=== PATIENT | male | born 1985 | race Caucasian/White ===

== ENCOUNTER 2016-12-11 20:05 | Emergency (ER) | payer SELFPAY ==
[~2016-12-11] VITALS: Ht 188 cm; Wt 99.8 kg
--- NOTE | 2016-12-11 20:30 | NUR ---
Per Dr Pina, patient is not a Code Sepsis
[2016-12-11] MEDS ORDERED: KETOROLAC TROMETHAMINE 30 MG INJ IVP ONE (20:45)
[2016-12-11] MEDS ORDERED: CLINDAMYCIN PHOSPHATE IV 600 MG in IV DEXTROSE 5% 100 ML IV ONE (20:45)
[2016-12-11] MEDS ORDERED: DEXAMETHASONE SOD PHOSPHATE 4 MG INJ IV ONE (20:45)
[2016-12-11] MEDS ORDERED: IV NORMAL SALINE 1000 ML BAG IV ONE (20:45)
[2016-12-11] MEDS ORDERED: KETOROLAC TROMETHAMINE 30 MG INJ ONE (21:04)
[2016-12-11] MEDS ORDERED: DEXAMETHASONE SOD PHOSPHATE 10 MG INJ ONE (21:04)
[2016-12-11 21:06] LABS: BASOPHILS # (AUTO) 0.1 K/uL (0.0-8.0); BASOPHILS % (AUTO) 0.7 % (0.0-2.0); EOSINOPHILS # (AUTO) 0.1 K/uL (0.0-0.7); HEMATOCRIT 47.8 % (40-50); HEMOGLOBIN 16.3 G/DL (14.0-18.0); LYMPHOCYTES # (AUTO) 1.7 K/UL (0.8-4.8); LYMPHOCYTES % (AUTO) 18.6 % (20.5-51.5); MEAN CORPUSCULAR HEMOGLOBIN 28.9 UUG (27.0-31.0); MEAN CORPUSCULAR HGB CONC 34 g/dL (32.0-37.0); MEAN CORPUSCULAR VOLUME 84.7 FL (82.0-92.0); MONOCYTES # (AUTO) 1.2 K/UL (0.1-1.30); MONOCYTES % (AUTO) 13.2 % (0.0-11.0); NEUTROPHILS # (AUTO) 6.2 K/UL (1.8-8.9); NEUTROPHILS % (AUTO) 66.5 % (38.5-71.5); PLATELET COUNT (AUTO) 239 K/UL (150-450); RED BLOOD CELL COUNT(AUTO) 5.64 MIL/UL (4.7-6.1); WHITE BLOOD COUNT (AUTO) 9.3 K/UL (4.0-11.2)
[2016-12-11 21:14] LABS: CREATININE 1.2 mg/dL (0.6-1.3); POTASSIUM 3.7 mmol/L (3.5-5.1)
[2016-12-11 21:21] LABS: BILIRUBIN,DIRECT 0.1 mg/dL (0.0-0.2); BILIRUBIN,TOTAL 0.5 mg/dL (0.2-1.0); TOTAL PROTEIN, SERUM 8.3 g/dL (6.4-8.2)
[2016-12-11] MEDS ORDERED: CLINDAMYCIN PHOSPHATE 600 MG/4 ML VIAL ONE (21:21)
--- NOTE | 2016-12-11 22:13 | NUR ---
Patient discharged to home in stable conditon. Written and verbal after care instructions given. Patient verbalizes understanding of instructions. Ambulated from ER with stable gait. All beloningings with patient.
[2016-12-11 22:16] VITALS: BP 131/74
== END 2016-12-11 22:17 | disposition home or self-care (01) ==
LOC: EDBD 20:07 → ER 20:07
DX: I88.9 Nonspecific lymphadenitis, unspecified (principal)
CPT/HCPCS: 36415; 70030-TC; 83605; 85025; 86403; 87040; 87070; 87400; A4663; J1100; J1885; J3490; J7030

== ENCOUNTER 2016-12-22 16:40 | Emergency (ER) | payer SELFPAY ==
[~2016-12-22] VITALS: Ht 188 cm; Wt 95.3 kg
[2016-12-22 17:33] LABS: BASOPHILS # (AUTO) 0.1 K/uL (0.0-8.0); BASOPHILS % (AUTO) 0.7 % (0.0-2.0); EOSINOPHILS # (AUTO) 0.2 K/uL (0.0-0.7); EOSINOPHILS % (AUTO) 1.7 % (0.0-7.0); HEMATOCRIT 45.6 % (40-50); HEMOGLOBIN 15.1 G/DL (14.0-18.0); LYMPHOCYTES # (AUTO) 3.8 K/UL (0.8-4.8); LYMPHOCYTES % (AUTO) 32.9 % (20.5-51.5); MEAN CORPUSCULAR HGB CONC 33 g/dL (32.0-37.0); MEAN CORPUSCULAR VOLUME 84.6 FL (82.0-92.0); MONOCYTES # (AUTO) 0.7 K/UL (0.1-1.30); MONOCYTES % (AUTO) 5.8 % (0.0-11.0); NEUTROPHILS # (AUTO) 6.6 K/UL (1.8-8.9); NEUTROPHILS % (AUTO) 58.9 % (38.5-71.5); PLATELET COUNT (AUTO) 325 K/UL (150-450); RED BLOOD CELL COUNT(AUTO) 5.39 MIL/UL (4.7-6.1); WHITE BLOOD COUNT (AUTO) 11.4 K/UL (4.0-11.2)
[2016-12-22 17:55] LABS: CARBON DIOXIDE 26 mmol/L (21-32); CHLORIDE 104 mmol/L (98-107); CREATININE 1.1 mg/dL (0.6-1.3); GLUCOSE 93 mg/dL (74-106); POTASSIUM 4.2 mmol/L (3.5-5.1); UREA NITROGEN, BLOOD 15 mg/dL (7-18)
[2016-12-22 18:00] LABS: ALANINE AMINOTRANSFERASE 17 U/L (16-63); ALKALINE PHOSPHATASE 58 U/L (50-136); ASPARTATE AMINOTRANSFERASE < 5 U/L (15-37); BILIRUBIN,DIRECT 0.1 mg/dL (0.0-0.2); BILIRUBIN,TOTAL 0.2 mg/dL (0.2-1.0); LIPASE 249 U/L (73-393); TOTAL PROTEIN, SERUM 8.2 g/dL (6.4-8.2)
--- NOTE | 2016-12-22 18:22 | NUR ---
Patient discharged to home in stable conditon. Written and verbal after care instructions given. Patient verbalizes understanding of instructions.PT SAYS FEELS BETTER.
[2016-12-22 18:23] VITALS: BP 121/71
== END 2016-12-22 18:24 | disposition home or self-care (01) ==
LOC: ER 16:43
DX: R07.89 Other chest pain (principal); F17.200 Nicotine dependence, unspecified, uncomplicated
CPT/HCPCS: 36415; 70030-TC; 83690; 85025; 93005; A4663

== ENCOUNTER 2018-03-28 23:18 | Emergency (ER) | payer SELFPAY ==
[~2018-03-28] VITALS: Ht 190.5 cm; Wt 99.8 kg
--- NOTE | 2018-03-28 23:45 | NUR ---
Dr. James at bedside for MSE.
[2018-03-28] MEDS ORDERED: ASPIRIN EC 325 MG TABLET.DR PO STA (23:48)
[2018-03-29 00:03] LABS: BASOPHILS # (AUTO) 0.1 K/uL (0.0-8.0); BASOPHILS % (AUTO) 0.6 % (0.0-2.0); EOSINOPHILS # (AUTO) 0.2 K/uL (0.0-0.7); EOSINOPHILS % (AUTO) 1.7 % (0.0-7.0); HEMATOCRIT 44.9 % (36.7-47.1); HEMOGLOBIN 15.8 g/dL (12.5-16.3); LYMPHOCYTES # (AUTO) 3.7 K/uL (20.0-40.0); LYMPHOCYTES % (AUTO) 36.2 % (20.5-51.5); MEAN CORPUSCULAR HGB CONC 35 g/dL (32.5-36.3); MEAN CORPUSCULAR VOLUME 85.6 fL (73.0-96.2); MONOCYTES # (AUTO) 0.7 K/uL (2.0-10.0); MONOCYTES % (AUTO) 7.1 % (0.0-11.0); NEUTROPHILS # (AUTO) 5.5 K/uL (1.8-8.9); NEUTROPHILS % (AUTO) 54.4 % (38.5-71.5); PLATELET COUNT (AUTO) 281 K/uL (152-348); RED BLOOD CELL COUNT(AUTO) 5.25 MIL/uL (4.06-5.63); WHITE BLOOD COUNT (AUTO) 10.1 K/uL (3.6-10.2)
--- NOTE | 2018-03-29 00:03 | NUR ---
Xray at bedside.
[2018-03-29] MEDS ORDERED: ASPIRIN 325 MG TABLET ONE (00:05)
[2018-03-29 00:16] LABS: CREATININE 1.1 mg/dL (0.6-1.3); POTASSIUM 3.6 mmol/L (3.5-5.1)
--- NOTE | 2018-03-29 02:57 | NUR ---
Patient discharged to home in stable conditon. Written and verbal after care instructions given. Patient verbalizes understanding of instructions. Patient ambulated out of ER with steady gait, no acute signs of distress, VSS, all belongings taken, IV site discontinued.
[2018-03-29 02:58] VITALS: BP 139/94
== END 2018-03-29 02:58 | disposition home or self-care (01) ==
LOC: ER 23:19
DX: R07.89 Other chest pain (principal); F17.200 Nicotine dependence, unspecified, uncomplicated; Z90.49 Acquired absence of other specified parts of digestive tract
CPT/HCPCS: 36415 ×2; 71045; 80048; 84484 ×2; 85025; 85730; 93005; 99285; A4663; 70030-TC

== ENCOUNTER 2020-09-07 12:40 | Emergency (ER) | payer BC ==
[~2020-09-07] VITALS: Ht 188 cm; Wt 108.9 kg
--- NOTE | 2020-09-07 12:50 | NUR ---
PATIENT WAS MSE BY DR SOSA IN ROOM 04A.
[2020-09-07] MEDS ORDERED: HYDR-3980 PO (13:19)
--- NOTE | 2020-09-07 13:29 | NUR ---
Patient discharged to home in stable condition. Written and verbal after care instructions given. Patient verbalizes understanding of instructions. Stressed follow up or return to ER for worsening s/s.
[2020-09-07 13:30] VITALS: BP 133/71
== END 2020-09-07 13:32 | disposition home or self-care (01) ==
LOC: ER 12:41
DX: S62.336A Displaced fracture of neck of fifth metacarpal bone, right hand, initial encounter for closed fracture (principal); W22.01XA Walked into wall, initial encounter; Y92.89 Other specified places as the place of occurrence of the external cause
CPT/HCPCS: 73130; A4663

== ENCOUNTER 2021-10-21 16:56 | Emergency (ER) | payer BC ==
[~2021-10-21] VITALS: Ht 188 cm; Wt 104.3 kg
[~2021-10-21 16:56] MED LIST: HYDR-3980 PO
[2021-10-21] MEDS ORDERED: LORAZEPAM 2 MG/1 ML VIAL IV ONE (17:30)
[2021-10-21] MEDS ORDERED: PROPRANOLOL HCL 10 MG TABLET PO ONE (17:30)
[2021-10-21] MEDS ORDERED: LORAZEPAM 2 MG/1 ML VIAL ONE (17:40)
[2021-10-21] MEDS ORDERED: PROPRANOLOL HCL 10 MG TABLET ONE (17:42)
[2021-10-21 17:45] LABS: MEAN CORPUSCULAR HEMOGLOBIN 29.5 uug (23.8-33.4); PLATELET COUNT (AUTO) 322 K/uL (152-348)
[2021-10-21 17:49] VITALS: BP 146/80
[2021-10-21 17:52] LABS: CARBON DIOXIDE 26 mmol/L (21-32); CHLORIDE 103 mmol/L (98-107); CREATININE 1.1 mg/dL (0.6-1.3); GLUCOSE 115 mg/dL (74-106); POTASSIUM 3.8 mmol/L (3.5-5.1); UREA NITROGEN, BLOOD 12 mg/dL (7-18)
[2021-10-21 18:01] LABS: ALANINE AMINOTRANSFERASE 28 U/L (16-63); ALKALINE PHOSPHATASE 65 U/L (50-136); BILIRUBIN,DIRECT 0.1 mg/dL (0.0-0.2); BILIRUBIN,TOTAL 0.5 mg/dL (0.2-1.0); TOTAL PROTEIN, SERUM 8.2 g/dL (6.4-8.2)
[2021-10-21 18:24] LABS: ASPARTATE AMINOTRANSFERASE 5 U/L (15-37)
[2021-10-21] MEDS ORDERED: LORA-258 PO ×2 (18:36→18:37)
--- NOTE | 2021-10-21 18:45 | NUR ---
Gave pt RX and d/c instructions, pt verbalized understanding.
== END 2021-10-21 18:47 | disposition home or self-care (01) ==
LOC: ER 16:58
DX: I49.3 Ventricular premature depolarization (principal); R06.00 Dyspnea, unspecified; F17.210 Nicotine dependence, cigarettes, uncomplicated; R03.0 Elevated blood-pressure reading, without diagnosis of hypertension
CPT/HCPCS: 36415; 71045; 80048; 80076; 84484; 85025; 85379; 93005; 96374; 96375; 99285; J2060; A4663